=== PATIENT | male | born 2000 | race African-American/Black ===

== ENCOUNTER 2020-02-09 18:06 | Emergency (ER) | payer BC, OTHER ==
[~2020-02-09] VITALS: Ht 180.3 cm; Wt 104.3 kg
[2020-02-09 18:11] VITALS: BP 141/67
[2020-02-09] MEDS ORDERED: NOHOMEMEDICATIONS (18:17)
[2020-02-09] MEDS ORDERED: BACTRIM DS TAB1 EACH PO (18:31)
== END 2020-02-09 18:45 | disposition home or self-care (01) ==
LOC: ER 18:06
DX: L02.411 Cutaneous abscess of right axilla (principal)